=== PATIENT | female | born 1940 | race Caucasian/White ===

== ENCOUNTER 2021-03-06 19:16 | Inpatient (IN) ==
[2021-03-06 21:52] LABS: Basophils % 0.3 %; Eosinophils # 0.2 K/mcL (0.0-0.6); Eosinophils % 1.2 %; Hematocrit 39.6 % (35.3-44.9); Immature Granulocytes % 0.7 % (0-4); Lymphocytes # 1.2 K/mcL (0.6-4.6); Lymphocytes % 7.7 %; Mean Corpuscular HGB Conc 30.3 g/dL (31.6-35.5); Mean Corpuscular Hemoglobin 27.7 pg (28.0-33.3); Mean Corpuscular Volume 91.5 fL (83.0-100.0); Mean Platelet Volume 9.7 fL (9.4-12.4); Monocytes % 13.1 %; Neutrophils # 11.8 K/mcL (1.6-8.9); Platelet Count 557 K/mcL (140-400); Red Blood Count 4.33 M/mcL (3.82-4.97); Red Cell Distribution Width 13.8 % (11.5-14.5); White Blood Count 15.3 K/mcL (4.3-11.1)
[2021-03-06 22:11] LABS: Alanine Aminotransferase 13 Units/L (7-52); Albumin 3.3 g/dL (3.5-5.7); Albumin/Globulin Ratio 0.9 (1.1-2.2); Alkaline Phosphatase 135 Units/L (34-104); Aspartate Amino Transferase 24 Units/L (13-39); BUN/Creatinine Ratio 24 (6-26); Bilirubin,Total 0.4 mg/dL (0.3-1.0); Blood Urea Nitrogen 16 mg/dL (8-23); Calcium 9.4 mg/dL (8.6-10.3); Carbon Dioxide 36 mEq/L (23-29); Chloride 91 mEq/L (98-107); Globulin 3.7 g/dL (2.4-3.5); Glucose 105 mg/dL (70-105); Osmolality,Calculated 288 (280-300); Potassium 3.2 mEq/L (3.5-5.1); Sodium 138 mEq/L (136-145); Troponin I < 0.03 ng/mL (< 0.04); eGFR For African Americans > 60 (> 60); eGFR For Non-African Americans > 60 (> 60)
[2021-03-06] MEDS ORDERED: Isovue-370 500 ML BOTTLE IVP ONE (22:11)
[2021-03-06 22:50] LABS: Adenovirus Not Detected (Not Detect); Bordetella Pertussis Not Detected (Not Detect); Chlamydophila pneumoniae Not Detected (Not Detect); Coronavirus 229E Not Detected (Not Detect); Coronavirus HKU1 Not Detected (Not Detect); Coronavirus NL63 Not Detected (Not Detect); Coronavirus OC43 Not Detected (Not Detect); Human Metapneumovirus Not Detected (Not Detect); Human Rhinovirus/Enterovirus DETECTED (Not Detect); Influenza A Subtype 2009 H1 Not Detected (Not Detect); Influenza B Not Detected (Not Detect); Mycoplasma pneumoniae Not Detected (Not Detect); Parainfluenza Virus 1 Not Detected (Not Detect); Parainfluenza Virus 2 Not Detected (Not Detect); Parainfluenza Virus 3 Not Detected (Not Detect); Parainfluenza Virus 4 Not Detected (Not Detect); Respiratory Syncytial Virus Not Detected (Not Detect); SARS-CoV-2 Not Detected (Not Detect)
[2021-03-06] MEDS ORDERED: levoFLOXacin 750 MG/150 ML 750 MG/150 ML BAG IVPB ONE (23:13)
[2021-03-06 23:16] LABS: Bilirubin,Urine Negative (Negative); Blood,Urine Negative (Negative); Clarity,Urine Clear (Clear); Color,Urine Yellow (Yellow); Glucose,Urine (UA) Normal (Normal); Ketones,Urine Negative (Negative); Leukocyte Esterase,Urine Negative (Negative); Nitrite,Urine Negative (Negative); Protein,Urine Trace mg/dL (Neg-Trace); Urobilinogen,Urine Normal (Normal)
[2021-03-06] MEDS ORDERED: Potassium Chloride Elixir 20 MEQ/15 ML UDC PO ONE (23:34)
[2021-03-07] MEDS ORDERED: Acetaminophen 325 MG TABLET PO PRN (01:10)
[2021-03-07] MEDS ORDERED: Naloxone 0.4 MG/ML INJ IVP PRN (01:10)
[2021-03-07] MEDS ORDERED: Ondansetron 4 MG/2 ML VIAL IVP PRN (01:10)
[2021-03-07] MEDS ORDERED: Melatonin 3 MG TABLET PO PRN (01:10)
[2021-03-07 06:31] LABS: Basophils % 0.3 %; Eosinophils # 0.2 K/mcL (0.0-0.6); Eosinophils % 1.4 %; Hematocrit 38.6 % (35.3-44.9); Hemoglobin 11.4 g/dL (11.5-15.4); Immature Granulocytes % 0.7 % (0-4); Lymphocytes # 1.3 K/mcL (0.6-4.6); Lymphocytes % 10.7 %; Mean Corpuscular HGB Conc 29.5 g/dL (31.6-35.5); Mean Corpuscular Volume 91.5 fL (83.0-100.0); Mean Platelet Volume 9.5 fL (9.4-12.4); Monocytes # 1.9 K/mcL (0.0-1.3); Monocytes % 15.9 %; Neutrophils # 8.4 K/mcL (1.6-8.9); Platelet Count 526 K/mcL (140-400); Red Blood Count 4.22 M/mcL (3.82-4.97); White Blood Count 11.8 K/mcL (4.3-11.1)
[2021-03-07 06:34] LABS: Magnesium 1.9 mg/dL (1.6-2.6); Phosphorous 2.7 mg/dL (2.7-4.5); Troponin I < 0.03 ng/mL (< 0.04)
[2021-03-07] MEDS ORDERED: levoFLOXacin 750 MG/150 ML 750 MG/150 ML BAG IVPB SCH (09:00)
[2021-03-07 09:43] LABS: INR 1.5; Prothrombin Time 16.7 Seconds (9.4-12.1)
[2021-03-07 09:54] LABS: Lactate Dehydrogenase 187 Units/L (140-271); Total Protein 6.7 g/dL (6.4-8.9)
[2021-03-07 11:09] LABS: Total Protein,Pleural Fluid 4.2 g/dL
[2021-03-07 12:03] LABS: RBC,Pleural Fluid 4000 RBC/mcL
[2021-03-07 13:48] LABS: Appearance of Pleural Fl Hazy (Clear)
[2021-03-07 13:52] LABS: Basophils,Pleural Fluid 0 %; Eosinophils,Pleural Fluid 0 %
[2021-03-07] MEDS: sulfaSALAzine 500 MG TABLET PO SCH (18:17)
[2021-03-07] MEDS: Furosemide 20 MG/2 ML VIAL IVP SCH (18:17)
[2021-03-07] MEDS: carvediloL 6.25 MG TABLET PO SCH (18:18)
[2021-03-07] MEDS: Doxycycline 100 MG CAPSULE PO SCH (21:39)
[2021-03-07] MEDS: cefTRIAXone 1,000 MG in Water for inj. (sterile) 10 ML IVP SCH (21:47)
[2021-03-08 02:36] LABS: Hemoglobin 11.7 g/dL (11.5-15.4); Mean Corpuscular HGB Conc 30.8 g/dL (31.6-35.5); Mean Corpuscular Hemoglobin 27.9 pg (28.0-33.3); Mean Corpuscular Volume 90.5 fL (83.0-100.0); Mean Platelet Volume 9.4 fL (9.4-12.4); Platelet Count 547 K/mcL (140-400); Red Cell Distribution Width 14.2 % (11.5-14.5); White Blood Count 11.9 K/mcL (4.3-11.1)
[2021-03-08 03:01] LABS: BUN/Creatinine Ratio 15 (6-26); Blood Urea Nitrogen 10 mg/dL (8-23); Calcium 8.7 mg/dL (8.6-10.3); Carbon Dioxide 40 mEq/L (23-29); Chloride 94 mEq/L (98-107); Glucose 98 mg/dL (70-105); Osmolality,Calculated 289 (280-300); Potassium 3.5 mEq/L (3.5-5.1); Sodium 140 mEq/L (136-145); eGFR For African Americans > 60 (> 60); eGFR For Non-African Americans > 60 (> 60)
[2021-03-08 04:45] LABS: VBG HCO3 40 mEq/L (21-27); VBG PCO2 61 mmHg (41-51); VBG PH 7.43 pH Units (7.32-7.42); VBG PO2 92 mmHg (25-50)
[2021-03-08] MEDS: Furosemide 20 MG/2 ML VIAL IVP SCH (09:22)
[2021-03-08] MEDS: Doxycycline 100 MG CAPSULE PO SCH ×2 (09:22→20:03)
[2021-03-08] MEDS: carvediloL 6.25 MG TABLET PO SCH ×2 (09:22→16:42)
[2021-03-08] MEDS: sulfaSALAzine 500 MG TABLET PO SCH (09:22)
[2021-03-09] MEDS: cefTRIAXone 1,000 MG in Water for inj. (sterile) 10 ML IVP SCH (00:51)
[2021-03-09 06:27] LABS: Fluid Source for Cholesterol PLEURAL FLUID
[2021-03-09 07:28] LABS: Hematocrit 41.1 % (35.3-44.9); Hemoglobin 11.9 g/dL (11.5-15.4); Mean Corpuscular Hemoglobin 26.9 pg (28.0-33.3); Mean Corpuscular Volume 92.8 fL (83.0-100.0); Mean Platelet Volume 9.3 fL (9.4-12.4); Platelet Count 418 K/mcL (140-400); Red Blood Count 4.43 M/mcL (3.82-4.97); Red Cell Distribution Width 14.3 % (11.5-14.5); White Blood Count 11.3 K/mcL (4.3-11.1)
[2021-03-09] MEDS: Furosemide 20 MG/2 ML VIAL IVP SCH (08:42)
[2021-03-09] MEDS: carvediloL 6.25 MG TABLET PO SCH ×2 (08:42→16:26)
[2021-03-09] MEDS: Doxycycline 100 MG CAPSULE PO SCH ×2 (08:42→20:16)
[2021-03-09 10:23] LABS: BUN/Creatinine Ratio 23 (6-26); Blood Urea Nitrogen 16 mg/dL (8-23); Calcium 8.7 mg/dL (8.6-10.3); Carbon Dioxide 29 mEq/L (23-29); Chloride 96 mEq/L (98-107); Glucose 88 mg/dL (70-105); Osmolality,Calculated 291 (280-300); Sodium 140 mEq/L (136-145); eGFR For African Americans > 60 (> 60); eGFR For Non-African Americans > 60 (> 60)
[2021-03-10] MEDS: cefTRIAXone 1,000 MG in Water for inj. (sterile) 10 ML IVP SCH (00:17)
[2021-03-10 05:53] LABS: Hematocrit 41.5 % (35.3-44.9); Hemoglobin 12.6 g/dL (11.5-15.4); Mean Corpuscular HGB Conc 30.4 g/dL (31.6-35.5); Mean Corpuscular Hemoglobin 27.8 pg (28.0-33.3); Mean Corpuscular Volume 91.6 fL (83.0-100.0); Mean Platelet Volume 9.1 fL (9.4-12.4); Platelet Count 434 K/mcL (140-400); Red Blood Count 4.53 M/mcL (3.82-4.97); Red Cell Distribution Width 14.2 % (11.5-14.5); White Blood Count 11.9 K/mcL (4.3-11.1)
[2021-03-10 06:27] LABS: BUN/Creatinine Ratio 29 (6-26); Blood Urea Nitrogen 20 mg/dL (8-23); Calcium 8.9 mg/dL (8.6-10.3); Carbon Dioxide 42 mEq/L (23-29); Chloride 94 mEq/L (98-107); Glucose 96 mg/dL (70-105); Osmolality,Calculated 292 (280-300); Potassium 3.2 mEq/L (3.5-5.1); Sodium 140 mEq/L (136-145); eGFR For African Americans > 60 (> 60); eGFR For Non-African Americans > 60 (> 60)
[2021-03-10] MEDS: Doxycycline 100 MG CAPSULE PO SCH (08:06)
[2021-03-10] MEDS: carvediloL 6.25 MG TABLET PO SCH ×2 (08:06→17:33)
[2021-03-10] MEDS: Furosemide 20 MG/2 ML VIAL IVP SCH (08:07)
[2021-03-10 10:39] LABS: Cholesterol,Body Fluid 93 mg/dL
[2021-03-10] MEDS ORDERED: *HR* Propofol 200 MG/20 ML VIAL IVP ONE (11:25)
[2021-03-10] MEDS ORDERED: *HR* FentaNYL (PF) 100 MCG/2 ML VIAL ONE (11:25)
[2021-03-10] MEDS ORDERED: Ondansetron 4 MG/2 ML VIAL ONE (11:25)
[2021-03-10] MEDS ORDERED: Lidocaine HCL 4 ML Topical Solution (Laryng-O-Jet Kit Sterile Pak) TP ONE (11:25)
[2021-03-10] MEDS ORDERED: Lidocaine -MPF 2% 5 ML VIAL ONE (11:25)
[2021-03-10] MEDS ORDERED: Naloxone 0.4 MG/ML INJ IVP PRN (11:54)
[2021-03-10] MEDS ORDERED: Nitroglycerin 0.4 MG TAB.SUBL SL PRN (11:54)
[2021-03-10] MEDS ORDERED: *HR* FentaNYL (PF) 100 MCG/2 ML VIAL IVP PRN (11:54)
[2021-03-10] MEDS ORDERED: Albuterol 2.5 MG/3 ML NEBULIZER IH PRN (11:54)
[2021-03-10 15:26] LABS: Appearance of Body Fluid Slightly Hazy (Clear)
[2021-03-10 15:27] LABS: Volume of Body Fluid 16 mL
[2021-03-10 15:38] VITALS: BP 142/61; PULSE 77; TEMP 98.2; O2SAT 95
[2021-03-11] MEDS ORDERED: Furosemide 20 MG TABLET PO SCH (09:00)
== END 2021-03-10 20:30 | disposition home health service (06) | DRG 186 ==
LOC: 2NENU 19:16 → EMEROOARM 19:16 → SUATTDRO 23:47 → 2NENU 03-07 00:15 → SUATTDRO 03-07 22:11
PROVIDERS: ADMIT Family Medicine; ATTEND Family Medicine